=== PATIENT | male | born 1945 | race Caucasian/White ===

== ENCOUNTER → 2020-10-01 | Outpatient (CLI) | payer MEDICARE ==
[~2020-10-01] MED LIST: CHOL10003 PO; LISI-167 PO; TAMS-11 PO
[2020-10-01 15:05] LABS: ALBUMIN 4.1 g/dL (3.4-5.0); CALCIUM 9.1 mg/dL (8.5-10.1)
[2020-10-01 15:09] LABS: ALANINE AMINOTRANSFERASE 21 U/L (12-78); ALKALINE PHOSPHATASE 94 U/L (45-117); BILIRUBIN,TOTAL 0.4 mg/dL (0.2-1.0); CREATININE 1.23 mg/dL (0.7-1.3)
[2020-10-01 15:15] LABS: ANION GAP 4 mmol/L (5-15); CHLORIDE 109 mmol/L (98-107)
== END | disposition home or self-care (01) ==
LOC: STAR 13:17
PROVIDERS: ATTEND Surgery
DX: Z01.812 Encounter for preprocedural laboratory examination (principal); Z20.828 Contact with and (suspected) exposure to other viral communicable diseases; K42.9 Umbilical hernia without obstruction or gangrene
CPT/HCPCS: 36415; 80053; 87635; 93005

== ENCOUNTER 2020-10-08 07:36 | Day surgery (SDC) | payer MEDICARE ==
[~2020-10-08] VITALS: Ht 182.9 cm; Wt 77.2 kg
[2020-10-08 08:19] VITALS: BP 177/69
[2020-10-08] MEDS ORDERED: CHLORHEXIDINE 15 ML UDC ONE (08:24)
[2020-10-08] MEDS ORDERED: CHLORHEXIDINE 15 ML UDC MM ONE (08:30)
[2020-10-08] MEDS ORDERED: LACTATED RINGERS 1,000 ML IV SCH (08:30)
[2020-10-08] MEDS ORDERED: BUPIVACAINE/PF 0.5% ONE (08:54)
[2020-10-08] MEDS ORDERED: EPINEPHRINE 1 MG/ML, 1ML ONE (08:55)
[2020-10-08] MEDS ORDERED: FENTANYL PF 250 MCG/5ML ONE (09:23)
[2020-10-08] MEDS ORDERED: PROPOFOL 10 MG/ML, 20ML ONE (09:34)
[2020-10-08] MEDS ORDERED: LIDOCAINE-MPF 1%, 2ML ONE (09:34)
[2020-10-08] MEDS ORDERED: GLYCOPYRROLATE 0.2MG/1ML, 5ML ONE (09:34)
[2020-10-08] MEDS ORDERED: ONDANSETRON 2MG/ML, 2ML ONE (09:34)
[2020-10-08] MEDS ORDERED: NEOSTIGMINE 1 MG/ML, 10ML ONE (09:34)
[2020-10-08] MEDS ORDERED: DEXAMETHASONE 4 MG/ML, 1ML ONE (09:34)
[2020-10-08] MEDS ORDERED: CEFAZOLIN 1,000 MG ONE (09:34)
[2020-10-08] MEDS ORDERED: METHOCARBAMOL 1,000 MG in DEXTROSE 5% 100 ML IV PRN (10:30)
[2020-10-08] MEDS ORDERED: FENTANYL PF 100 MCG/2ML IV PRN (10:30)
[2020-10-08] MEDS ORDERED: EPHEDRINE 50 MG/ML, 1ML IVPush PRN (10:30)
[2020-10-08] MEDS ORDERED: LABETALOL 5MG/ML, 20ML IV PRN (10:30)
[2020-10-08] MEDS ORDERED: HALOPERIDOL 5 MG/ML IV PRN (10:30)
[2020-10-08] MEDS ORDERED: HYDROmorphone 1 MG/ML, 1ML INJ IVPush PRN (10:30)
[2020-10-08] MEDS ORDERED: LORazepam 2 MG/ML, 1ML IVPush PRN (10:30)
[2020-10-08] MEDS ORDERED: OXYcodone 5 MG/5 ML ORAL.SOL UDC PO PRN (10:30)
[2020-10-08] MEDS ORDERED: ACETAMINOPHEN 325 MG TABLET PO PRN (10:30)
[2020-10-08] MEDS ORDERED: ONDANSETRON 2MG/ML, 2ML IVPush PRN (10:30)
[2020-10-08] MEDS ORDERED: PROMETHAZINE 25 MG/ML, 1ML IVPush PRN (10:30)
[2020-10-08] MEDS ORDERED: hydrALAzine 20 MG/ML, 1ML ONE (10:51)
[2020-10-08] MEDS: hydrALAzine 20 MG/ML, 1ML IV PRN ×2 (10:52→11:13)
== END 2020-10-08 18:15 | disposition home or self-care (01) ==
LOC: OUT 07:36
PROVIDERS: ATTEND Surgery
DX: K42.9 Umbilical hernia without obstruction or gangrene (principal); Z20.828 Contact with and (suspected) exposure to other viral communicable diseases; I10 Essential (primary) hypertension
CPT/HCPCS: 49585; 87635; J0171; J0360; J0690; J1100; J2405; J2704; J2710; J3010; J7120; 93005